=== PATIENT | male | born 2005 | race Caucasian/White ===

== ENCOUNTER 2024-11-06 19:59 | Emergency (ER) | payer MEDICAID, SELFPAY ==
[2024-11-06 19:59] VITALS: BMI 30.7
--- NOTE | 2024-11-06 20:05 | XR_ITS ---
Examination: Hand, right 3 views Technique: Hand AP, oblique, lateral 3 views Date and time of exam: November 06 2024.11 hours Indications: Lifting injury to the head today, hand pain. Findings: No acute fracture No dislocation No foreign body Impression: No acute fracture
[2024-11-06 20:06] VITALS: BP 145/89; PULSE 98; RESP 20; TEMP 37; O2SAT 98
--- NOTE | 2024-11-06 20:35 | PD.EDHAND ---
Upper Extremity Injury RME/HPI General Chief Complaint: Hand/Wrist Problems Stated Complaint: RT HAND INJURY Time Seen by Provider: 11/06/24 20:31 Arrival date/time: 11/06/24 19:59 19M with no significant PMH presents to ED with R hand pain pain after he was punching stuff because he broke up with his GF. Patient is UTD on vaccinations. Limitations: no limitations Related Data Previous Rx's ?Medication ?Instructions ?Recorded ibuprofen 600 mg tablet 600 mg PO Q6HR #30 tabs 08/15/18 ondansetron 4 mg disintegrating See Rx Instructions .Route 11/18/18 tablet .COMPLEX #20 tabs ibuprofen 400 mg tablet 400 mg PO Q8H #14 tabs 04/29/19 aluminum-mag hydroxide-simethicone 5 ml PO QID PRN indigestion #3,000 05/04/20 400 mg-400 mg-40 mg/5 mL oral susp mL (Maalox Maximum Strength) peg 3350-electrolytes 236 240 ml PO Q30MIN constipation 04/02/21 gram-22.74 gram-6.74 gram-5.86 #4,000 mL gram solution (Golytely) Allergies Allergy/AdvReac Type Severity Reaction Status Date / Time amoxicillin Allergy Unknown RASH Verified 11/18/18 17:38 Penicillins Allergy Rash Verified 09/01/19 22:03 Review of Systems Review of Systems Systems Reviewed: All systems reviewed, normal except as documented Constitutional Constitutional: Reports system reviewed and no additional complaints, except as documented, Denies fever(s) and Denies headache(s) ENT Ears, Nose, Mouth, and Throat: Denies disequilibrium and Denies headache(s) Cardiovascular Cardiovascular: Reports system reviewed and no additional complaints, except as documented, Denies chest pain and Denies dyspnea Respiratory Respiratory: Reports system reviewed and no additional complaints, except as documented, Denies cough and Denies dyspnea Gastrointestinal Gastrointestinal: Reports system reviewed and no additional complaints, except as documented, Denies abdominal pain, Denies nausea and Denies vomiting Neurologic Neurologic: Reports system reviewed and no additional complaints, except as documented, Denies confusion, Denies disequilibrium and Denies headache(s) Psychiatric Psychiatric: Denies confusion Past Medical History Past Medical History CARDIAC: Negative Congestive Heart Failure RESPIRATORY: Negative Chronic Obstructive Pulmonary Disease (COPD) GENITOURINARY: Negative Renal Disease ENDOCRINE: Negative Diabetes Mellitus Type 1 or Diabetes Mellitus Type 2 Surgical History SURGICAL: Negative Abdominal Surgery Social History SMOKING STATUS: Never smoker SUBSTANCE USE: does not use ED Exam General Limitations: Present no limitations General appearance: Present alert and in no apparent distress Head Head exam: Present atraumatic Eye Eye exam: Present normal appearance, PERRL and EOMI ENT ENT exam: Present normal exam, normal oropharynx and mucous membranes moist Neck Neck exam: Present normal inspection, full ROM and trachea midline Chest Chest inspection: Present normal inspection and symmetric chest wall rise Respiratory Respiratory exam: Present normal lung sounds bilaterally Cardiovascular Cardiovascular exam: Present regular rate, normal rhythm and normal heart sounds Abdominal Exam Abdominal exam: Present soft and normal bowel sounds Extremities Exam Extremities exam: Present normal inspection and full ROM Back Exam Back exam: Present normal inspection and full ROM Neurological Exam Neurological exam: Present alert, oriented X3 and CN II-XII intact Psychiatric Psychiatric exam: Present normal affect and normal mood Skin Skin exam: Present warm, dry, intact and normal color Course Quality Measures none Orders Category Date Time Status XR hand comp RT min 3V Stat Exams 11/06/24 20:05 Completed Vital Signs Vital signs: Vital Signs Temperature 98.6 F 11/06/24 20:06 Pulse Rate 98 11/06/24 20:06 Respiratory Rate 20 11/06/24 20:06 Blood Pressure 145/89 H 11/06/24 20:06 Pulse Oximetry (%) 98 11/06/24 20:06 Oxygen Delivery Method Room Air 11/06/24 20:06 O2 at 98% on RA and WNLs Extremity Injury MDM Narrative MDM Narrative:: 19M with no significant PMH presents to ED with R hand pain pain after he was punching stuff because he broke up with his GF. Patient is UTD on vaccinations. Physical exam reveals some redness around knuckles. No gross swelling or tenderness. Small superficial lac on hand. ROM intact. Patient is afebrile, calm, and alert. XR no fx. Patient data External records reviewed:: [facility] previous records Clinical information provided by:: patient Social determinants that could affect healthcare access:: none Patient has the following chronic illnesses:: none How is presenting disease/condition affected by chronic disease/condition?: no chronic disease Evaluation data The following diagnostics were reviewed and interpreted by me:: radiology exam(s) Lab and/or radiology exams considered but not ordered:: ordered Interpretation Summary: above Medications / Prescriptions Medications or Prescriptions considered but not ordered:: not ordered Medication administrations:: n/a Consultations Consultation(s) initiated? (list below): No Diagnosis Upper Extremity Injury Differential Diagnosis: sprain and strain of wrist, fracture of wrist, finger sprain, dislocation of finger, Colles' fracture, fracture of hand and other (hand contusion) Most likely diagnosis given after review of the tests above:: hand contusion Admission Indicated Admission indicated?: not indicated Admission Request Was there a request for admission?: No Disposition Plan Disposition Plan: Discharge Discharge Attestation Discharge Attestation: The patient and all family members were given an opportunity to ask questions and understood the discharge instructions. Discharge instructions specifically effects, indications for sooner follow up or return to the emergency department, and the expected course of current diagnosis. Patient condition: Stable Discharge Plan Plan Patient Disposition: HOME (Self Care) Disposition Comment: Stable Prescriptions/Referrals Prescriptions/Med Rec: No Action ibuprofen 400 mg tablet 400 mg PO Q8H Qty: 14 0RF ibuprofen 600 mg tablet 600 mg PO Q6HR Qty: 30 0RF ondansetron 4 mg tablet,disintegrating See Rx Instructions .Route .COMPLEX Qty: 20 0RF Rx Instructions: 1-2 tabs SL Q6-8 hours prn nausea / vomiting alum-mag hydroxide-simeth [Maalox Maximum Strength] 400-400-40 mg/5 mL suspension 5 ml PO QID PRN (Reason: indigestion) Qty: 3000 0RF peg 3350-electrolytes [Golytely] 236-22.74-6.74 -5.86 gram recon soln 240 ml PO Q30MIN Qty: 4000 0RF Rx Instructions: until fecal effluent is clear Referrals: No Primary/Family,Physician [Primary Care Provider] - In 1 week Problem List Clinical Impression: Contusion of hand Patient/Caregiver Discharge Instructions Education Materials: ED Hand Contusion Additional Instructions: Please follow-up with PCP within 24-48 hours and return immediately if symptoms worsen. If problem persists, recommend outpatient PT and/or MRI follow-up. In the meantime, rest, use ice/heat, and/or compression. Print Language: Yoruba Stand Alone Forms: Patient Portal Info Letter LORRIE/SHARMIN Supervising Physician LORRIE/SHARMIN Supervising Physician: Dr. Ledesma
== END 2024-11-06 21:53 | disposition home or self-care (01) ==
PROVIDERS: Emergency Provider Emergency Medicine
DX: S60.221A Contusion of right hand, initial encounter (principal); W22.8XXA Striking against or struck by other objects, initial encounter
CPT/HCPCS: 73130; 99283

== ENCOUNTER 2025-02-20 02:39 | Emergency (ER) | payer MEDICAID, SELFPAY ==
[2025-02-20 02:41] VITALS: BMI 29.8
--- NOTE | 2025-02-20 03:00 | XR_ITS ---
EXAMINATION: Ankle, right 3 views . Technique: Ankle AP, oblique, lateral 3 views Date and time of exam: February 20, 2025, 0304 hours INDICATIONS: Injury to the ankle today, ankle pain FINDINGS: No fracture or dislocation IMPRESSION: No fracture or dislocation
[2025-02-20 03:21] VITALS: BP 144/82; PULSE 101; RESP 18; TEMP 37.4; O2SAT 98
--- NOTE | 2025-02-20 03:45 | PRELIM_ITS ---
Radiographs of the left ankle joint (3 views) February 20, 2025 at 0304 hours Clinical history: Stepped in hole; twist. Comparison: None. Findings: There is no evidence of fracture or dislocation. The tibiotalar and subtalar joints are normal in configuration and alignment. The visualized bones are of normal configuration and density. Impression: No evidence of fracture or dislocation. Report Electronically Signed By: Olayinka Stokes 02/20/2025 3:44:45 AM [EST]
--- NOTE | 2025-02-20 03:51 | EDNOTE_ITS ---
Lower Extremity Injury RME/HPI General Chief Complaint: Ankle/Foot Injury Stated Complaint: L ANKLE INJURY Time Seen by Provider: 02/20/25 03:49 Arrival date/time: 02/20/25 02:39 19M with no significant PMH presents to ED with L ankle pain after he stepped in a hole. Patient also hit head after twist/fall, but he is not concerned about that. Limitations: no limitations Related Data Previous Rx's ?Medication ?Instructions ?Recorded ibuprofen 600 mg tablet 600 mg PO Q6HR #30 tabs 07/23 12/07 ondansetron 4 mg disintegrating See Rx Instructions .R oute 11/18/18 tablet .COMPLEX #20 tabs ibuprofen 400 mg tablet 400 mg PO Q8H #14 tabs 04/29 aluminum-mag hydroxide-simethicone 5 ml PO QID PRN ind igestion #3,000 05/04/20 400 mg-400 mg-40 mg/5 mL oral susp mL (Maalox Maximum Strength) peg 3350-electrolytes 236 240 ml PO Q30MIN constipatio n 04/02/21 gram-22.74 gram-6.74 gram-5.86 #4,000 mL gram solution (Golytely) Allergies Allergy/AdvReac Type Severity Reaction Status Date / Time amoxicillin Allergy Unknown RASH Verified 02/20/25 02:40 Penicillins Allergy Rash Verified 02/20/25 02:40 Review of Systems Review of Systems Systems Reviewed: All systems reviewed, normal except as documented Constitutional Constitutional: Reports system reviewed and no additional complaints, except as documented, Denies fever(s) and Denies headache(s) ENT Ears, Nose, Mouth, and Throat: Denies disequilibrium and Denies headache(s) Cardiovascular Cardiovascular: Reports system reviewed and no additional complaints, except as documented, Denies chest pain and Denies dyspnea Respiratory Respiratory: Reports system reviewed and no additional complaints, except as documented, Denies cough and Denies dyspnea Gastrointestinal Gastrointestinal: Reports system reviewed and no additional complaints, except as documented, Denies abdominal pain, Denies nausea and Denies vomiting Musculoskeletal Musculoskeletal: Reports as per HPI and Reports arthralgias Neurologic Neurologic: Reports system reviewed and no additional complaints, except as documented, Denies confusion, Denies disequilibrium and Denies headache(s) Psychiatric Psychiatric: Denies confusion Past Medical History Past Medical History CARDIAC: Negative Congestive Heart Failure RESPIRATORY: Negative Chronic Obstructive Pulmonary Disease (COPD) GENITOURINARY: Negative Renal Disease ENDOCRINE: Negative Diabetes Mellitus Type 1 or Diabetes Mellitus Type 2 Surgical History SURGICAL: Negative Abdominal Surgery Social History SMOKING STATUS: Never smoker SUBSTANCE USE: does not use ED Exam General Limitations: Present no limitations General appearance: Present alert and in no apparent distress Head Head exam: Present atraumatic Eye Eye exam: Present normal appearance, PERRL and EOMI ENT ENT exam: Present normal exam, normal oropharynx and mucous membranes moist Neck Neck exam: Present normal inspection, full ROM and trachea midline Chest Chest inspection: Present normal inspection and symmetric chest wall rise Respiratory Respiratory exam: Present normal lung sounds bilaterally Cardiovascular Cardiovascular exam: Present regular rate, normal rhythm and normal heart sounds Abdominal Exam Abdominal exam: Present soft and normal bowel sounds Extremities Exam Extremities exam: Present full ROM Expanded Lower Extremity Exam Ankle exam: Present tenderness (R) and swelling Back Exam Back exam: Present normal inspection and full ROM Neurological Exam Neurological exam: Present alert, oriented X3 and CN II-XII intact Psychiatric Psychiatric exam: Present normal affect and normal mood Skin Skin exam: Present warm, dry, intact and normal color Course Quality Measures none Orders Category Date Time Status Crutches .NOW Care 02/20/25 03:49 Active XR ankle comp LT min 3V Stat Exams 02/20/25 03:00 Taken Vital Signs Vital signs: Vital Signs Temperature 99.3 F 02/20/25 03:21 Pulse Rate 101 H 02/20/25 03:21 Respiratory Rate 18 02/20/25 03:21 Blood Pressure 144/82 H 02/20/25 03:21 Pulse Oximetry (%) 98 02/20/25 03:21 Oxygen Delivery Method Room Air 02/20/25 03:21 O2 at 98% on RA and WNLs Extremity Injury, Lower MDM Narrative MDM Narrative:: 19M with no significant PMH presents to ED with L ankle pain after he stepped in a hole. Patient also hit head after twist/fall, but he is not concerned about that. Physical exam reveals R ankle tenderness. ROM limited. No gross head trauma. Speech normal. Normal WOB. Patient is afebrile, calm, and alert. Telerad XR read no fx. Given crutches and compliance counsel. Patient already had ABDOULAYE wrap. Patient data External records reviewed:: [facility] previous records Clinical information provided by:: patient Social determinants that could affect healthcare access:: none Patient has the following chronic illnesses:: none How is presenting disease/condition affected by chronic disease/condition?: no chronic disease Evaluation data The following diagnostics were reviewed and interpreted by me:: radiology exam(s) Lab and/or radiology exams considered but not ordered:: ordered Interpretation Summary: above Medications / Prescriptions Medications or Prescriptions considered but not ordered:: not ordered Medication administrations:: n/a Consultations Consultation(s) initiated? (list below): No Diagnosis Extremity Injury, Lower Differential Diagnosis: ankle sprain and strain, acute internal derangement of knee, puncture wound of foot, fracture of toe and ankle fracture Most likely diagnosis given after review of the tests above:: ankle sprain and strain Admission Indicated Admission indicated?: not indicated Admission Request Was there a request for admission?: No Disposition Plan Disposition Plan: Discharge Discharge Attestation Discharge Attestation: The patient and all family members were given an opportunity to ask questions and understood the discharge instructions. Discharge instructions specifically effects, indications for sooner follow up or return to the emergency department, and the expected course of current diagnosis. Patient condition: Stable Discharge Plan Plan Patient Disposition: HOME (Self Care) Discharge Disposition comment: Stable Prescriptions/Referrals Prescriptions/Med Rec: No Action ibuprofen 400 mg tablet 400 mg PO Q8H Qty: 14 0RF ibuprofen 600 mg tablet 600 mg PO Q6HR Qty: 30 0RF ondansetron 4 mg tablet,disintegrating See Rx Instructions .Route .COMPLEX Qty: 20 0RF Rx Instructions: 1-2 tabs SL Q6-8 hours prn nausea / vomiting alum-mag hydroxide-simeth [Maalox Maximum Strength] 400-400-40 mg/5 mL suspension 5 ml PO QID PRN (Reason: indigestion) Qty: 3000 0RF peg 3350-electrolytes [Golytely] 236-22.74-6.74 -5.86 gram recon soln 240 ml PO Q30MIN Qty: 4000 0RF Rx Instructions: until fecal effluent is clear Problem List Clinical Impression: Ankle sprain and strain Patient/Caregiver Discharge Instructions Education Materials: ED Ankle Sprain (Adult) Additional Instructions: Please follow-up with PCP within 24-48 hours and return immediately if symptoms worsen. If problem persists, recommend outpatient PT and/or MRI follow-up. In the meantime, rest, use ice/heat, and/or compression. Print Language: Burkinan Stand Alone Forms: Patient Portal Info Letter PA/PORTABLE SAWMILL OPERATOR Supervising Physician PA/PORTABLE SAWMILL OPERATOR Supervising Physician: Dr. Oliva
== END 2025-02-20 04:46 | disposition home or self-care (01) ==
LOC: SERX 04:34
PROVIDERS: Emergency Provider Emergency Medicine; PCP Family Medicine
DX: S93.402A Sprain of unspecified ligament of left ankle, initial encounter (principal); S96.912A Strain of unspecified muscle and tendon at ankle and foot level, left foot, initial encounter; X58.XXXA Exposure to other specified factors, initial encounter
CPT/HCPCS: 73610; 99283